=== PATIENT | female | born 1990 | race Caucasian/White ===

== ENCOUNTER 2016-06-12 00:09 | Emergency (ER) | payer SELFPAY ==
[~2016-06-12] VITALS: Ht 167.6 cm; Wt 66.2 kg
[2016-06-12] MEDS ORDERED: DIPHTH,PERTUSS(ACELL),TET TOX 0.5 ML DISP.SYRIN. VAX IM ONE (01:30)
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
[2016-06-12 02:08] VITALS: BP 125/60
== END 2016-06-12 02:14 | disposition home or self-care (01) ==
LOC: ER 00:09 → EEVIPCON 00:09 → ER 02:14
DX: S09.90XA Unspecified injury of head, initial encounter (principal); F41.9 Anxiety disorder, unspecified; F31.9 Bipolar disorder, unspecified; F32.9 Major depressive disorder, single episode, unspecified; F12.10 Cannabis abuse, uncomplicated; Z88.0 Allergy status to penicillin; Z91.040 Latex allergy status; W22.8XXA Striking against or struck by other objects, initial encounter; Y93.89 Activity, other specified; Y99.8 Other external cause status; Y92.89 Other specified places as the place of occurrence of the external cause
CPT/HCPCS: 70450; 90471; 90715; 99284-25

== ENCOUNTER 2020-08-06 00:24 | Emergency (ER) | payer MEDICAID ==
[~2020-08-06] VITALS: Ht 167.6 cm; Wt 61.3 kg
--- NOTE | 2020-08-06 01:50 | PHYS DOC ---
Past Medical History Past Medical History: Anxiety, Bipolar, Depression, Seizure Past Surgical History: No Surgical History Smoking Status: Current Every Day Smoker Alcohol Use: Occasionally Drug Use: Marijuana General Adult EDM: Chief Complaint: MULTIPLE COMPLAINTS HPI: HPI: Patient is a 29 year old [f__sex] who presents with [] Review of Systems: Review of Systems: Fourteen body systems of review of systems have been reviewed. See HPI for pertinent positives and negative responses, other andino all other systems are negative, non-pertinent or non-contributory Heart Score: Risk Factors: Risk Factors: DM, Current or recent (<one month) smoker, HTN, HLP, family history of CAD, obesity. Risk Scores: Score 0 - 3: 2.5% MACE over next 6 weeks - Discharge Home Score 4 - 6: 20.3% MACE over next 6 weeks - Admit for Clinical Observation Score 7 - 10: 72.7% MACE over next 6 weeks - Early Invasive Strategies Allergies: Allergies: Allergies Coded Allergies Type Severity Reaction Last Updated Verified Penicillins Allergy Severe Anaphylaxis 06/12/16 Yes latex Allergy Intermediate 06/12/16 Yes Physical Exam: PE: Constitutional: Well developed, well nourished, no acute distress, non-toxic appearance. HENT: Normocephalic, atraumatic, bilateral external ears normal, oropharynx moist, no oral exudates, nose normal. Eyes: PERRLA, EOMI, conjunctiva normal, no discharge. Neck: Normal range of motion, no tenderness, supple, no stridor. Cardiovascular: Heart rate regular, sinus rhythm, no murmurs rubs or gallops Lungs & Thorax: Bilateral breath sounds clear to auscultation Abdomen: Bowel sounds normal, soft, no tenderness, no masses, no pulsatile masses. Nonsurgical abdomen, no peritoneal signs Skin: Warm, dry, no erythema, no rash. Back: No tenderness, no CVA tenderness. Extremities: No tenderness, no cyanosis, no clubbing, ROM intact, no edema. Neurologic: Alert and oriented X 3, grossly normal motor & sensory function, no focal deficits noted. Psychologic: Affect normal, judgement normal, mood normal. Current Patient Data: Labs: Laboratory Tests Test 08/06/20 01:43 POC Urine HCG, Qualitative Hcg positive (Negative) Vital Signs: Vital Signs Date Time Temp Pulse Resp B/P (MAP) Pulse Ox O2 Delivery O2 Flow Rate FiO2 08/06/20 01:25 98.7 114 22 140/65 (90) 98 Room Air 98.7 EKG: EKG: [] Radiology/Procedures: Radiology/Procedures: [] Course & Med Decision Making: Course & Med Decision Making Pertinent Labs and Imaging studies reviewed. (See chart for details) [] Dragon Disclaimer: Dragon Disclaimer: This electronic medical record was generated, in whole or in part, using a voice recognition dictation system. Departure Departure Impression: Primary Impression: UTI (urinary tract infection) Additional Impressions: and not yet delivered Tachycardia Disposition: HOME / SELF CARE / HOMELESS Condition: STABLE Referrals: NO PCP (PCP) Patient Instructions: ABCs of , Nonspecific Tachycardia, Urinary Tract Infection Additional Instructions: You were seen for a urinary tract infection. Please continue to take the antibiotics as prescribed. Your physical exam was nonconcerning for emergent or surgical findings. We discussed utility of further diagnostic work-up in the ER setting but decision was made to defer until you are seen for your first visit with [employer]. As discussed, you were tachycardic which you report is normal for you and that is worsened when in a hospitalized setting. Even still, it is advise you contact your primary care physician and follow-up on this as it could be an acute presentation of more concerning/underlying issues. You should return to the ED if you develop worsening pain, fever, flank pain, or any other new or concerning symptoms. If any concerning signs or symptoms present prior to outpatient follow-up please do not hesitate to come back for repeat evaluation. It was a pleasure to take care of you and I wish you the best going forward Scripts Clindamycin Hcl (CLINDAMYCIN HCL) 300 Mg Capsule 1 CAP PO TID, #20 CAP Prov: MAYELIN ZAMBRANO DO 08/06/20 MAYELIN ZAMBRANO DO August 06, 2020 01:50
[2020-08-06 01:56] LABS: BILIRUBIN,URINE NEGATIVE (NEG); CLARITY,URINE CLEAR; COLOR,URINE YELLOW; NITRITE,URINE POSITIVE (NEG); PH,URINE 6.5 (<5.0-8.0); PROTEIN,URINE NEGATIVE (NEG-TRACE); UROBILINOGEN,URINE 0.2 mg/dL (0.2 mg/dL)
[2020-08-06 02:03] LABS: BACTERIA,URINE MANY /HPF (0-FEW); WBC,URINE TNTC /HPF (0-4)
[2020-08-06 02:18] VITALS: BP 116/63
[2020-08-06] MEDS ORDERED: CEPHALEXIN 250 MG CAPSULE. ONE (02:20)
[2020-08-06] MEDS ORDERED: CEPH500T PO (02:21)
[2020-08-06] MEDS ORDERED: CLIN300C9 PO (02:29)
[2020-08-06] MEDS ORDERED: CEPHALEXIN 250 MG CAPSULE. PO ONE (02:30)
[2020-08-06] MEDS ORDERED: CLINDAMYCIN HCL 150 MG CAPSULE. PO ONE (03:00)
== END 2020-08-06 02:43 | disposition home or self-care (01) ==
LOC: ER 00:24
DX: O23.41 Unspecified infection of urinary tract in pregnancy, first trimester (principal); O99.411 Diseases of the circulatory system complicating pregnancy, first trimester; R00.0 Tachycardia, unspecified; O99.341 Other mental disorders complicating pregnancy, first trimester; F31.9 Bipolar disorder, unspecified; Z3A.01 Less than 8 weeks gestation of pregnancy; O99.331 Smoking (tobacco) complicating pregnancy, first trimester; F17.210 Nicotine dependence, cigarettes, uncomplicated; Z88.0 Allergy status to penicillin; Z91.040 Latex allergy status
CPT/HCPCS: 81001; 81025; 87077; 87086; 87186; 99283